=== PATIENT | female | born 1975 | race Caucasian/White ===

== ENCOUNTER 2019-06-03 12:49 | Emergency (ER) | payer BC ==
[2019-06-03] MEDS ORDERED: Lisinopril 10 MG Tab ONE (13:00)
[2019-06-03] MEDS ORDERED: LORazepam 1 MG Tab ONE ×2 (13:00→13:59)
[2019-06-03] MEDS ORDERED: LORazepam 2 MG/ML SDV IVPUSH ONE (13:12)
[2019-06-03] MEDS ORDERED: Lisinopril 10 MG Tab PO ONE (13:14)
--- NOTE | 2019-06-03 16:11 | ER ---
REASON FOR EMERGENCY ROOM VISIT: Anxiety. HISTORY: This 44-year-old woman was in her usual state of good health yesterday and has been busy moving into a new newly purchased in [place], this has included moving heavy furniture and preparing the cabin. She states that they were fairly busy yesterday and she drank an unusual amount of water up to 5 or 6 bottles in the course of this, although she states she did not get overheated nor was she exposed to a lot of excessive sunlight and heat. This morning after she woke up, she started feeling dizzy, shaky, and overall a sense of impending doom. She stated to her "oh my God, get me to the hospital now." She states that she felt "tingly" allover in her hands and feet, her arms and legs. She states that she does have a history of hypertension for which she was taking lisinopril 10 mg daily, but because her blood pressure returned to normal, this was discontinued sometime within the past year. She admits that she does not go to the doctor and has an aversion for doing this. She does recall an episode 2 years ago where she went to the ER for a high blood pressure. At that time, she felt anxious and she states that she could tell her blood pressure is elevated. She was treated for her high blood pressure and her anxiety and discharged with instructions for followup, which she did not do very well. One year ago, she had an episode of a headache and dizziness, and she went to the ER where her blood pressure was 220 systolic, she does not remember the diastolic number. She again was treated for high blood pressure and anxiety and discharged. She has not seen her doctor for at least a year. PAST MEDICAL HISTORY: Significant for hypertension, otherwise unremarkable. 2, para 2. MEDICATIONS: None. ALLERGIES: NONE. REVIEW OF SYSTEMS: A complete review of systems was undertaken and this is totally negative. All pertinent positives and negatives are listed in the HPI. PHYSICAL EXAMINATION: GENERAL: She does appear to be anxious, but she is answering questions appropriately. She is not tremulous at this time. VITAL SIGNS: On admission, she was afebrile. Blood pressure was 173/112, pulse of 102, respiratory rate 18, O2 sats are 100%. HEENT: Head is normocephalic. Pupils equally round, reactive to light. Oropharynx is normal. NECK: Supple. No JVD. No bruits are heard. CHEST: Clear to auscultation with no wheezes, rhonchi, or rales and good air exchange bilaterally. CARDIAC: Regular rate with no murmur. ABDOMEN: Obese, soft, nontender with no rebound, guarding, or percussion tenderness. There is no hepatosplenomegaly. No palpable masses. EXTREMITIES: Normal pulses. No edema. NEUROLOGIC: Cranial nerves 2 through 12 are intact. Deep tendon reflexes are symmetrical bilaterally in both lower extremities. Muscle tone, strength and law professor are normal and symmetrical bilaterally. Sensation normal to crude touch. Station and gait were not tested. LABORATORY DATA: Her CBC was unremarkable with a hemoglobin of 14,100 and a white count of 11.2 x10 to 3rd. Her CMP showed hyponatremia with a sodium of 125. She has a mild hypokalemia with potassium 3.2, her chloride is 96. Her anion gap is normal at 10.3. Her creatinine 0.97, glucose is 105, calcium is 8.5, liver enzymes are normal. Urinalysis was normal with a specific gravity of 1.020. FURTHER EMERGENCY ROOM COURSE: She was given 1 mg of Ativan IV once an IV was secured. In addition to this, she was given 10 mg of lisinopril p.o. I talked with her for quite some time and managed to calm her down and get her laughing and talking. Her arrived and I think that helped a great deal as well. IMPRESSION: 1. Anxiety, possible panic attack. 2. Elevated blood pressure, possibly uncontrolled hypertension. 3. Hyponatremia, asymptomatic. Her symptoms of anxiety, etcetera are not attributable to hyponatremia which should produce somnolence, weakness etcetera if anything. I believe her hyponatremia is most likely dilutional judging from the large amounts of water she drank yesterday, but it needs to be followed. PLAN: A long discussion was undertaken regarding the importance of establishing a primary care provider, which she currently does not have, the importance of following her for blood pressure, and restarting her lisinopril was emphasized, and she agrees with this plan. Additionally, she should have her electrolytes rechecked, preferably tomorrow, but if that cannot be done, then certainly on Wednesday. In the meantime, I advised her to stay away from free water such as lemonade water, etcetera, and to stick to things like Gatorade, potato chips, etc. For her low potassium, I recommended certain dietary recommendations such as bananas, apricots, etc. I advised her to take it easy the rest of the day. She was given lisinopril 10 mg, dispensed #6, lisinopril dispensed #6, one p.o. daily, and Ativan 1 mg, dispensed #5, one q.12 hours p.r.n. anxiety. I encouraged her to use this judiciously and to avoid driving and by all means, avoid alcohol as alcohol can play a role in hyponatremia, and she did have a number of drinks yesterday. She understands all this and by the time she was discharged, she felt "completely normal" and back to her usual self. She agrees to this plan. All questions were answered. MARK /[id number]
== END 2019-06-03 14:41 | disposition home or self-care (01) ==
LOC: LB.ED 12:49
DX: F41.9 Anxiety disorder, unspecified (principal); R03.0 Elevated blood-pressure reading, without diagnosis of hypertension
CPT/HCPCS: 36415; 80053; 81001; 85025; 96374; 99284; A9270; J2060